=== PATIENT | female | born 1970 | race Hispanic/Latino ===

== ENCOUNTER 2021-02-23 10:24 | Outpatient (CLI) | payer OTHER ==
--- NOTE | 2021-02-23 12:23 | XRay Report ---
LEFT SHOULDER 3 VIEWS INDICATION: LEFT SHOULDER PAIN. COMPARISON: None. IMPRESSION: No acute osseous or soft tissue abnormality. No significant DJD. Signer Name: Brayden Romeo Jr, MD Signed: 02/23/2021 12:18 PM Workstation Name: [id number]
== END 2021-02-23 10:25 | disposition home or self-care (01) ==
LOC: XRAY 10:24
PROVIDERS: ATTEND Internal Medicine
DX: M25.512 Pain in left shoulder (principal); Z02.71 Encounter for disability determination; E03.9 Hypothyroidism, unspecified; E83.51 Hypocalcemia; F41.9 Anxiety disorder, unspecified; E11.9 Type 2 diabetes mellitus without complications